=== PATIENT | female | born 1965 | race Two or more races ===

== ENCOUNTER 2017-12-27 10:45 | Outpatient (CLI) | payer OTHER | END 2017-12-27 10:48 | disposition home or self-care (01) | LOC: MAMO-SONO 10:45 | DX: Z12.31 Encounter for screening mammogram for malignant neoplasm of breast (principal) ==

== ENCOUNTER 2018-02-05 13:49 | Outpatient (CLI) | payer OTHER | END 2018-02-05 14:31 | disposition home or self-care (01) | LOC: SONOGRAMA 13:49 | DX: N60.11 Diffuse cystic mastopathy of right breast (principal); N60.12 Diffuse cystic mastopathy of left breast; N63.41 Unspecified lump in right breast, subareolar ==

== ENCOUNTER 2019-01-02 10:49 | Outpatient (CLI) | payer OTHER | END 2019-01-02 11:07 | disposition home or self-care (01) | LOC: MAMO-SONO 10:49 | DX: Z12.31 Encounter for screening mammogram for malignant neoplasm of breast (principal); N60.11 Diffuse cystic mastopathy of right breast ==

== ENCOUNTER 2021-08-12 10:42 | Outpatient (CLI) | payer OTHER | END 2021-08-12 10:58 | disposition home or self-care (01) | LOC: MAMO-SONO 10:42 | PROVIDERS: ATTEND General Practice | DX: N63.0 Unspecified lump in unspecified breast (principal) ==